=== PATIENT | male | born 1930 | race Caucasian/White ===

== ENCOUNTER 2017-02-19 08:53 | Day surgery (SDC) | payer MEDICARE ==
[~2017-02-19] VITALS: Ht 188 cm; Wt 104.0 kg
[~2017-02-19 08:53] MED LIST: ALBU8.5H2 INHALATION; ALFU10TA11 PO; ASPI-973 PO; ATEN50TA PO; CHOL10008 PO; COLC0.6T52 PO; CYAN10008 PO; FERR-83 PO; FURO40TA4 PO; GLPZ5T PO; LOSA50TA37 PO; LOVA10TA PO; METF-778 PO; NITR0.3T6 SL; NPR500T PO; OXYB5TAB PO; PROB500T8 PO; SIME80TA53 PO; Sodium Chloride LOK Flush 10 mL Syringe IV PRN; TIOT18CA3 IH; fentaNYL-PF 50 mCg/mL 2 mL Inj IVPUSH PRN
[2017-02-19 09:15] VITALS: BP 129/62; PULSE 72; RESP 16; O2SAT 98
[2017-02-19] MEDS ORDERED: 0.9% Sodium Chloride 1,000 ML IV ONE (10:25)
[2017-02-19 10:41] VITALS: BP 117/62; PULSE 70; RESP 16; O2SAT 92
[2017-02-19 10:51] VITALS: BP 96/59; PULSE 75; RESP 16; O2SAT 96
[2017-02-19 11:11] VITALS: BP 121/69; PULSE 70; RESP 16; O2SAT 94
--- NOTE | 2017-02-19 13:17 | ENDO ---
[address] [address] ENDOSCOPY PROCEDURE PATIENT: FRANK CARDOSO : 1930 MR#: [id number] ADMIT: 02/19/2017 JOB ID: [id number] TYPE OF OPERATION: Esophagogastroduodenoscopy (EGD) with biopsy and colonoscopy with biopsy. PREOPERATIVE DIAGNOSIS: Iron deficiency anemia. POSTOPERATIVE DIAGNOSIS(ES): 1. Schatzki's ring seen in the distal esophagus. 2. Moderate erosive esophagitis. 3. Large hiatal hernia. 4. 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 5. Severe sigmoid diverticulosis with tortuous sigmoid. 6. Three polyps removed, two in the cecum and one in the ascending colon, 2 mm size, removed by cold biopsy forceps. ANESTHESIA: Fentanyl 200 mcg, versed 7 mg IV administered. COMPLICATIONS: None. ESTIMATED BLOOD LOSS: Minimal. DESCRIPTION OF PROCEDURE: After the risks and benefits were explained to the patient, informed consent was obtained. After anesthesia was administered, the upper endoscope was inserted through the mouth, intubated through the esophagus, stomach, and second portion of the duodenum and the mucosa carefully examined. After the procedure was done, the scope was withdrawn and the procedure terminated. The colonoscope was then inserted through the rectum to the cecum and the mucosa carefully examined. Prep of the patient was excellent. After the procedure was done, the scope was withdrawn and the procedure terminated. FINDINGS: Upon inspection of the esophagus, the esophagus looked normal, except that there was a Schatzki ring in the distal esophagus along with distal necrosis moderate esophagitis. Z-line located 40 cm from the incisors. Upon entering the stomach, the stomach appeared normal, without masses, ulcers, or lesions. Retroflexion revealed a large hiatal hernia. Duodenal bulb, first and second portion were normal, except there was a large duodenal diverticulum in the first portion. Biopsies taken in the duodenum, antrum, body, and distal esophagus. Upon inspection of the anus no masses, hemorrhoids, ulcers, or fissures that were seen throughout the entire examination. There was severe sigmoid diverticulosis and tortuous sigmoid colon. There were three polyps that were seen, two in the cecum and one in the ascending colon, status post biopsy removed by cold biopsy forceps. Retroflexion was normal. IMPRESSIONS: 1. Schatzki ring. 2. Moderate erosive esophagitis. 3. Large hiatal hernia. 4. Duodenum diverticulum first portion. 5. Severe sigmoid diverticulosis with tortuous sigmoid colon. 6. Three polyps removed in total, two in the cecum and one in the ascending colon, removed by cold biopsy forceps along with a hemoclip that was placed post biopsy site in the cecum. RECOMMENDATIONS: 1. Await pathology results. 2. Protonix 40 mg by mouth twice a day. 3. High fiber diet. 4. If three or more tubular adenoma polyps, repeat colonoscopy in three years. If less than three tubular adenoma polyps, repeat colonoscopy in five years.
--- NOTE | 2017-02-22 15:14 | PATH ---
SURGICAL PATHOLOGY Attending Physician:Konrad Delgado MD CASE STATUS: Signed Out PATIENT NAME: FRANK CARDOSO PID: [id number] : 1930 DATE COLLECTED:02/19/2017 20:24 SPECIMEN: 1: Duodenum, Biopsy 2: Stomach, Antrum, Biopsy 3: Gastric, Biopsy 4: Esophagus, Biopsy 5: Colon, Polyp 6: Colon, Polyp CLINICAL HISTORY: 1). DUODENUM BIOPSY 2). ANTRUM BIOPSY, RULE OUT H.PYLORI 3). GASTRIC BODY BIOPSY 4). DISTAL ESOPHAGUS BIOPSY 5). ASCENDING COLON POLYP 6). CECAL POLYP X2 FINAL DIAGNOSIS: 1. Duodenum, Biopsy: Fragments of normal appearing duodenal mucosa. Normal delicate mucosal villi present. Negative for significant inflammation, dysplasia and malignancy. 2. Stomach Antrum Biopsy: Superficial mucosal hyperemia without associated significant Inflammation involving antral mucosa. Negative for evidence of Helicobacter on H&E stain. Negative for intestinal metaplasia. Negative for dysplasia and malignancy. 3. Gastric Body Biopsy: Mucosal hyperemia without associated significant inflammation Involving fundic mucosa. Negative for evidence of Helicobacter on H&E stain. Negative for intestinal metaplasia. Negative for dysplasia and malignancy. 4. Distal Esophagus Biopsy: Squamous mucosa and gastric cardia-type mucosa negative for Specialized metaplasia of Flores's type esophagus. Negative for dysplasia and malignancy. Negative for squamous intraepithelial eosinophils. 5. Ascending Colon Polyp; Tubular adenoma involving single biopsy fragment. 6. Cecal Polyps: Tubular adenoma involving both biopsy fragments. ICD10: D12.0 GROSS DESCRIPTION: The specimen is received in six formalin filled containers labeled with the patient's name. 1). The specimen is sublabeled "duodenum" and consists of 2 portions of tissue which aggregate to 0.3 x 0.2 x 0.2 CM. The specimen is entirely submitted in cassette 1A. 2). The specimen is sublabeled "antrum" and consists of 2 portions of tissue which aggregate to 0.4 x 0.3 x 0.2 CM. The specimen is entirely submitted in cassette 2A. 3). The specimen is sublabeled "gastric body" and consists of 2 portions of tissue which aggregate to 0.3 x 0.3 x 0.2 CM. The specimen is entirely submitted in cassette 3A. 4). The specimen is sublabeled "distal esophagus" and consists of a 0.4 x 0.3 x 0.2 CM portion of tissue which is entirely submitted in cassette 4A. 5). The specimen is sublabeled "ascending polyp" and consists of 2 portions of tissue which aggregate to 0.3 x 0.3 x 0.3 CM. The specimen is entirely submitted in cassette 5A. 6). The specimen is sublabeled "cecal polyp X2" and consists of 2 portions of tissue which aggregate to 0.4 x 0.4 x 0.3 CM. The specimen is entirely submitted in cassette 6A. 02/19/2017 [facility] ICD-9 CODES: CPT CODES: 1: 17782 2: 49579 3: 49330 4: 51680 5: 77104 6: 66297 Electronically Signed Out Osmani Godoy MD [facility] [address], [place] [address] Technical component performed at [facility], [address], [place], [address]
== END 2017-02-19 23:59 | disposition home or self-care (01) ==
LOC: END 08:53
PROVIDERS: ATTEND Internal Medicine Gastroenterology
DX: D12.0 Benign neoplasm of cecum (principal); D12.2 Benign neoplasm of ascending colon; K57.30 Diverticulosis of large intestine without perforation or abscess without bleeding; K22.10 Ulcer of esophagus without bleeding; K44.9 Diaphragmatic hernia without obstruction or gangrene; K22.2 Esophageal obstruction; D50.9 Iron deficiency anemia, unspecified; I25.10 Atherosclerotic heart disease of native coronary artery without angina pectoris; I10 Essential (primary) hypertension; J44.9 Chronic obstructive pulmonary disease, unspecified; E78.5 Hyperlipidemia, unspecified; E11.9 Type 2 diabetes mellitus without complications; K21.9 Gastro-esophageal reflux disease without esophagitis; Z79.51 Long term (current) use of inhaled steroids; Z79.84 Long term (current) use of oral hypoglycemic drugs; Z79.82 Long term (current) use of aspirin
CPT/HCPCS: 43239; 45380; 99153; G0500; J2250; J3010; J7030

== ENCOUNTER → 2017-05-14 | Day surgery (SDC) | payer MEDICARE ==
[~2017-05-14] VITALS: Ht 185.4 cm; Wt 106.6 kg
[~2017-05-14] MED LIST changes: +0.9% Sodium Chloride 1,000 ML IV SCH; +FINA5TAB9 PO; -OXYB5TAB PO; +PANT40TA2 PO
[2017-05-14 13:03] VITALS: BP 170/80; PULSE 78; RESP 14; O2SAT 98
[2017-05-14 14:21] VITALS: BP 133/64; PULSE 77; RESP 16; O2SAT 93
[2017-05-14 14:31] VITALS: BP 128/61; PULSE 77; RESP 16; O2SAT 93
[2017-05-14 14:41] VITALS: BP 122/66; PULSE 77; RESP 16; O2SAT 93
--- NOTE | 2017-05-14 14:47 | ENDO ---
[address] [address] ENDOSCOPY PROCEDURE PATIENT: FRANK CARDOSO : 1930 MR#: [id number] ADMIT: 05/14/2017 JOB ID: [id number] CORRECTED REPORT: DATE: 05/14/2017 TITLE OF OPERATION: 1. Colonoscopy with biopsy and hot snare polypectomy. 2. GI spot tattoo. PREOPERATIVE DIAGNOSIS(ES): Iron deficiency anemia. POSTOPERATIVE DIAGNOSIS(ES): 1. 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 Status post biopsy and gastrointestinal spot tattoo 4 mL. 2. A 1 cm sigmoid colon polyp removed by hot snare polypectomy followed by hemoclip placement. 3. Two polyps seen in the ascending colon, approximately 4-5 mm in size, removed by hot snare polypectomy and biopsy, and hemoclip placed at post polypectomy site due to mild oozing after the removal. 4. Severe sigmoid diverticulosis. ANESTHESIA: Fentanyl 157 mcg, Versed 7 mg IV administered. COMPLICATIONS: None. ESTIMATED BLOOD LOSS: Minimal. DESCRIPTION OF PROCEDURE: After the risks and benefits were explained to the patient, informed consent was obtained. After anesthesia was administered, the colonoscope was inserted from the rectum to the cecum and the mucosa carefully examined. Prep of the patient was excellent. After the procedure was done, the scope was withdrawn and the procedure was terminated. FINDINGS: Upon inspection of the anus, no masses, hemorrhoids, ulcers, or fissures that were seen. Throughout the entire examination, there was a 1 cm sigmoid colon polyp removed by hot snare polypectomy, followed by a hemoclip that was placed. There was also severe sigmoid diverticulosis. Two polyps seen in the ascending colon measuring 4-5 mm in size, removed by biopsy and hot snare polypectomy, and a hemoclip placed due to oozing at the post polypectomy site. There was also a large cecal mass that was seen in the appendiceal orifice and also at the ileocecal valve, which was biopsied and a GI spot tattoo was placed. Retroflexion was normal. IMPRESSION: 1. 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 Status post biopsy and gastrointestinal spot tattoo. 2. A 1 cm sigmoid colon polyp removed by hot snare polypectomy, followed by one hemoclip placement. 3. Severe sigmoid diverticulosis. 4. Two polyps seen in the ascending colon measuring 4-5 mm in size, removed by biopsy and hot snare polypectomy, followed by hemoclip placed due to oozing at the post polypectomy site. RECOMMENDATIONS: 1. Await pathology results. 2. CT of chest, abdomen, and pelvis with contrast. 3. Follow up in GI Clinic in two weeks. 4. The patient will most likely need a General Surgery consult to the cecal mass. Corrected by GS 05/20/17 at 9:30am DOS.
[2017-05-14 14:51] VITALS: BP 130/70; PULSE 73; RESP 16; O2SAT 95
--- NOTE | 2017-05-17 16:04 | PATH ---
SURGICAL PATHOLOGY Attending Physician:Konrad Delgado MD CASE STATUS: Signed Out PATIENT NAME: FRANK CARDOSO PID: [id number] : 1930 DATE COLLECTED:05/14/2017 00:00 SPECIMEN: 1: Colon, Polyp 2: Colon, Polyp 3: Colon, Biopsy CLINICAL HISTORY: 1). SIGMOID POLYP X1 2). ASCENDING POLYP X2 3). ILEOCECAL VALVE MASS BIOPSY FINAL DIAGNOSIS: 1.SIGMOID COLON POLYP, BIOPSY: TUBULOVILLOUS ADENOMA. No evidence of malignancy or high-grade dysplasia. 2.ASCENDING COLON POLYP, BIOPSY: FRAGMENTS OF TUBULOVILLOUS ADENOMA AND SESSILE SERRATED ADENOMA. No evidence of malignancy or high-grade dysplasia. 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 TUBULAR ADENOMA IN 2 FRAGMENTS. SEE COMMENT. [id number] D12.5 D12.0 NOTE: 3. Additional levels were examined. There is no evidence of invasive carcinoma. Per Dr. Delgado the more concerning mass was biopsied near the appendiceal orifice. As part of routine director of quality control, Dr. Ryan Allen has also reviewed part 3 of this case and agrees with the interpretation. Dr. Bob discussed preliminary findings with Dr. Delgado on 05/17/17. GROSS DESCRIPTION: The specimen is received in three formalin filled containers labeled with the patient's name. 1). The specimen is labeled "sigmoid" and consists of a 0.6 x 0.5 x 0.5 CM portion of tissue which is entirely submitted cassette 1A. 2). The specimen is labeled "ascend" and consists of multiple portions of tissue which aggregate to 0.3 x 0.3 x 0.2 CM. The specimen is entirely submitted in cassette 2A. 3). The specimen is labeled "IC valve" and consists of 3 portions of tissue which aggregate to 0.3 x 0.3 x 0.2 CM. The specimen is entirely submitted in cassette 3A. 05/15/2017DC MICRO DESCRIPTION: See diagnosis. ICD-9 CODES: CPT CODES: 1: 64857 2: 38435 3: 89251 Electronically Signed Out Jeannine Bob MD [facility] [address] [place] [address], [place] [phone] Technical component performed at [facility], [address], [place], [address]
== END | disposition home or self-care (01) ==
LOC: END 01:21
PROVIDERS: ATTEND Internal Medicine Gastroenterology
DX: D12.5 Benign neoplasm of sigmoid colon (principal); D12.2 Benign neoplasm of ascending colon; K57.30 Diverticulosis of large intestine without perforation or abscess without bleeding; D50.9 Iron deficiency anemia, unspecified; R19.5 Other fecal abnormalities; K64.8 Other hemorrhoids; I10 Essential (primary) hypertension; I25.10 Atherosclerotic heart disease of native coronary artery without angina pectoris; E78.2 Mixed hyperlipidemia; E11.42 Type 2 diabetes mellitus with diabetic polyneuropathy; K44.9 Diaphragmatic hernia without obstruction or gangrene; K22.2 Esophageal obstruction; N40.0 Benign prostatic hyperplasia without lower urinary tract symptoms; K21.9 Gastro-esophageal reflux disease without esophagitis; M19.90 Unspecified osteoarthritis, unspecified site; J44.9 Chronic obstructive pulmonary disease, unspecified; Z85.51 Personal history of malignant neoplasm of bladder; Z86.010 Personal history of colon polyps; Z79.84 Long term (current) use of oral hypoglycemic drugs
CPT/HCPCS: 45380; 45381; 45385; 88305; 99153; G0500; J2250; J3010; J7030